=== PATIENT | female | born 1995 | race Caucasian/White ===

== ENCOUNTER 2023-01-10 23:15 | Inpatient (IN) | payer OTHER ==
[~2023-01-10] VITALS: Ht 154.9 cm; Wt 77.2 kg
[2023-01-10 23:31] VITALS: BP 156/101
[2023-01-10] MEDS ORDERED: PRENTAB9 PO (23:31)
[2023-01-10] MEDS ORDERED: HOME MED LIST COMPLETE! XX SCH (23:35)
[2023-01-10 23:50] VITALS: BP 158/90
[2023-01-10] MEDS ORDERED: LACTATED RINGER'S 1000 ML IV STA (23:58)
[2023-01-11] VITALS (47 sets, daily range): BP systolic 104–176; BP diastolic 55–98; O2SAT 98
[2023-01-11] MEDS ORDERED: CARBOPROST TROMETHAMINE 250 MCG/ML AMP IM PRN
[2023-01-11] MEDS ORDERED: OXYTOCIN INJ 10UNITS/ML 1ML VIAL IV PRN
[2023-01-11] MEDS ORDERED: TRANEXAMIC ACID INJection 1,000 MG in NS 100 ML IV PRN ×2
[2023-01-11] MEDS ORDERED: LIDOCAINE 1% MDV 20ML VIAL INFIL PRN
[2023-01-11] MEDS ORDERED: OXYTOCIN DRIP 30 UNITS in IV 1 EA IV PRN ×6
[2023-01-11] MEDS ORDERED: OXYTOCIN INJ 10UNITS/ML 1ML VIAL IM PRN
[2023-01-11] MEDS ORDERED: METHYLERGONOVINE MALEATE 0.2MG/ML 1ML VIAL IM PRN
[2023-01-11] MEDS ORDERED: PENICILLIN G POTASSIUM 5 MU IV 5 MU in D5W MINI-BAG PLUS 100 ML IV STA (00:06)
[2023-01-11 00:54] LABS: URIC ACID 5.8 MG/DL (3.1-7.8)
[2023-01-11 00:55] LABS: HEMOGLOBIN 11.5 g/dl (12.0-15.5); MEAN CORPUSCULAR HEMOGLOBIN 28.6 pg (27.0-33.0); MEAN CORPUSCULAR HGB CONC 33.8 g/dl (32.0-36.5); MEAN CORPUSCULAR VOLUME 84.6 fl (80.0-96.0); PLATELET COUNT, AUTOMATED 212 10^3/uL (150-450); RED BLOOD COUNT 4.02 10^6/uL (4.00-5.40); WHITE BLOOD COUNT 10.1 10^3/uL (4.0-10.0)
[2023-01-11 00:56] LABS: LDH LACTATE DEHYDROGENASE 205 U/L (120-246)
[2023-01-11 00:57] LABS: ALT/SGPT 11 U/L (7.0-40); AST/SGOT 23 U/L (<34); BILIRUBIN,TOTAL 0.3 MG/DL (0.3-1.2); CREATININE FOR GFR 0.49 MG/DL (0.55-1.30); GLOMERULAR FILTRATION RATE > 60.0 (>60)
[2023-01-11 01:09] LABS: TOTAL PROTEIN,RANDOM URINE 18.6 MG/DL (0.0-14.0)
[2023-01-11 01:14] LABS: CREATININE,RANDOM URINE 31.2 MG/DL
[2023-01-11] MEDS ORDERED: NALBUPHINE HCL 1MG/0.1ML (100MG/10ML) MDV IV PRN (04:05)
[2023-01-11] MEDS: LR 1,000 ML IV SCH ×3 (04:29→13:20)
[2023-01-11] MEDS ORDERED: EPIDURAL/PCA KEYS XX PRN (06:55)
[2023-01-11] MEDS ORDERED: NALOXONE INJ 0.4MG/1ML VIAL IV PRN (06:55)
[2023-01-11] MEDS ORDERED: ONDANSETRON 4MG 2ML VIAL IV PRN (06:55)
[2023-01-11] MEDS ORDERED: ePHEDrine SULFATE 25 MG/5 ML(5MG/ML) SYRINGE IVP PRN (06:55)
[2023-01-11] MEDS ORDERED: diphenhydrAMINE 50MG/ML VIAL IV PRN (06:55)
[2023-01-11] MEDS ORDERED: LR 500 ML IV PRN (06:55)
[2023-01-11] MEDS ORDERED: FENTANYL 2MCG/ML ROPIVACAINE 0.2% IN 0.9% NACL 100ML IVBAG As Ordered ONE (06:59)
[2023-01-11] MEDS: FENTANYL/ROPIVACAINE/NACL BAG 100 ML EPIDURAL SCH ×2 (07:15→17:17)
[2023-01-11] MEDS ORDERED: LIDOCAINE 2% 100MG/5ML SDV (FOR ANES.) As Ordered ONE (07:46)
[2023-01-11] MEDS: PEN G POT 3,000,000 UNIT/50 ML 3,000,000 UNIT in IV 1 EA IV SCH ×3 (08:35→16:30)
[2023-01-11] MEDS ORDERED: PROPRANOLOL INJ 1MG/ML 1ML VIAL IV STA ×2 (09:58→14:36)
[2023-01-11] MEDS ORDERED: CALCIUM CARBONATE 500 MG CHEW U/D PO ONE (10:00)
[2023-01-11] MEDS ORDERED: diphenhydrAMINE 50MG/ML VIAL IV ONE (18:05)
[2023-01-11 19:53] LABS: CORD GAS ABE V -3.6; CORD GAS O2 SAT V 70.5 %; CORD GAS PCO2 V 37.4 mmHg; CORD GAS PH V 7.368 UNITS; CORD GAS PO2 V 28.9 mmHg; CORD GAS SBC V 20.8 MMOL/L; CORD GAS TCO2 V 22.2 MMOL/L
[2023-01-11] MEDS ORDERED: METOCLOPRAMIDE INJ 10MG/2ML VIAL IV PRN (20:20)
[2023-01-11] MEDS ORDERED: ACETAMINOPHEN 500 MG TAB PO PRN (20:20)
[2023-01-11] MEDS ORDERED: DIBUCAINE 1% OINTMENT 30GM TOP PRN (20:20)
[2023-01-11] MEDS ORDERED: ANUSOL HC CREAM 30GM TOP PRN (20:20)
[2023-01-11] MEDS ORDERED: MOM 30ML SUSPENSION UDC PO PRN (20:20)
[2023-01-11] MEDS ORDERED: OXYTOCIN DRIP 30 UNITS in IV 1 EA IV SCH ×8 (20:20)
[2023-01-11] MEDS ORDERED: DOCUSATE SODIUM 100MG CAPSULE PO PRN (20:20)
[2023-01-11] MEDS ORDERED: LR 1,000 ML IV SCH ×2 (20:20)
[2023-01-11] MEDS ORDERED: IBUPROFEN 800 MG TAB PO PRN (20:20)
[2023-01-11] MEDS ORDERED: METHYLERGONOVINE MALEATE 0.2 MG TAB PO PRN (20:20)
[2023-01-11] MEDS ORDERED: RHOGAM 300MCG (1500IU) INJ IM SCH (20:20)
[2023-01-11] MEDS ORDERED: IBUPROFEN 600MG TAB PO PRN (20:20)
[2023-01-11] MEDS ORDERED: ACETAMINOPHEN TAB 650MG DOSE (2X325MG) PO PRN (20:20)
[2023-01-12 06:00] VITALS: BP 112/59; O2SAT 97
[2023-01-12] MEDS: PRENATAL VITAMINS CHEWABLE TABLET PO SCH (08:03)
[2023-01-12] MEDS ORDERED: PRENATAL VITAMINS CHEWABLE TABLET PO SCH (09:00)
[2023-01-12 18:00] VITALS: BP 119/63; O2SAT 98
[2023-01-13] MEDS: PRENATAL VITAMINS CHEWABLE TABLET PO SCH (08:07)
[2023-01-13] MEDS ORDERED: MEASLES,MUMPS,RUBELLA VACCINE INJ (MMR-II) SC.IMMUN ONE (09:00)
== END 2023-01-13 18:05 | disposition home or self-care (01) | DRG 807 ==
LOC: M LDO 23:15 → M LDI 23:55 → M OBS 01-11 23:45
PROVIDERS: ADMIT Obstetrics & Gynecology; ATTEND Obstetrics & Gynecology
PROC: 10E0XZZ Delivery of Products of Conception, External Approach (ICD-10-PCS; principal; 2023-01-11)
PROC: 0HQ9XZZ Repair Perineum Skin, External Approach (ICD-10-PCS; 2023-01-11)
DX: O14.04 Mild to moderate pre-eclampsia, complicating childbirth (principal); Z37.0 Single live birth; O77.0 Labor and delivery complicated by meconium in amniotic fluid; O99.824 Streptococcus B carrier state complicating childbirth; O70.0 First degree perineal laceration during delivery; Z3A.40 40 weeks gestation of pregnancy

== ENCOUNTER 2023-07-27 17:48 | Emergency (ER) | payer OTHER ==
[~2023-07-27] VITALS: Ht 154.9 cm; Wt 65.6 kg
[2023-07-27 17:48] VITALS: BP 133/87; TEMP 97.7; O2SAT 99
[~2023-07-27 17:48] MED LIST: PRENTAB9 PO
[2023-07-27] MEDS ORDERED: CEPH500C PO (23:03)
[2023-07-27] MEDS: CEPHALEXIN 500 MG CAP PO ONE (23:17)
== END 2023-07-27 23:26 | disposition home or self-care (01) ==
LOC: M ED 17:48
DX: O23.41 Unspecified infection of urinary tract in pregnancy, first trimester (principal); Z3A.12 12 weeks gestation of pregnancy; Z79.2 Long term (current) use of antibiotics; Z79.899 Other long term (current) drug therapy

== ENCOUNTER → 2024-01-17 | Outpatient (REF) | payer OTHER ==
[~2024-01-17] MED LIST changes: +CEPH500C PO
== END ==
LOC: M SFHCWAGY 16:59
PROVIDERS: ATTEND Specialist
DX: Z34.93 Encounter for supervision of normal pregnancy, unspecified, third trimester (principal); Z3A.36 36 weeks gestation of pregnancy

== ENCOUNTER 2024-02-06 06:17 | Inpatient (IN) | payer OTHER ==
[~2024-02-06] VITALS: Ht 154.9 cm; Wt 79.7 kg
[2024-02-06] VITALS (34 sets, daily range): BP systolic 95–144; BP diastolic 51–95; O2SAT 98
[2024-02-06] MEDS ORDERED: ACET-907 PO (06:25)
[2024-02-06] MEDS ORDERED: HOME MED LIST COMPLETE! XX SCH (06:30)
[2024-02-06 07:15] LABS: HEMATOCRIT 31.9 % (36.0-47.0); HEMOGLOBIN 9.7 g/dl (12.0-15.5); MEAN CORPUSCULAR HGB CONC 30.4 g/dl (32.0-36.5); MEAN CORPUSCULAR VOLUME 75.6 fl (80.0-96.0); PLATELET COUNT, AUTOMATED 276 10^3/uL (150-450); RED BLOOD COUNT 4.22 10^6/uL (4.00-5.40); WHITE BLOOD COUNT 13.6 10^3/uL (4.0-10.0)
[2024-02-06] MEDS ORDERED: TRANEXAMIC ACID INJection 1,000 MG in NS 100 ML IV PRN (07:30)
[2024-02-06] MEDS ORDERED: METHYLERGONOVINE MALEATE 0.2MG/ML 1ML VIAL IM PRN (07:30)
[2024-02-06] MEDS ORDERED: CARBOPROST TROMETHAMINE 250 MCG/ML AMP IM PRN (07:30)
[2024-02-06] MEDS ORDERED: LIDOCAINE 1% MDV 20ML VIAL INFIL PRN (07:30)
[2024-02-06] MEDS: LACTATED RINGER'S 1000 ML IV STA (07:42)
[2024-02-06] MEDS: PENICILLIN G POTASSIUM 5 MU IV 5 MU in DEXTROSE 5% (D5W) MINI-BAG PLU 100 ML IV STA (07:42)
[2024-02-06 08:48] LABS: HEPATITIS C VIRUS ABY INDEX < 0.02 INDEX (<0.8)
[2024-02-06] MEDS ORDERED: ONDANSETRON 4MG 2ML VIAL IV PRN (09:25)
[2024-02-06] MEDS ORDERED: ePHEDrine SULFATE 25 MG/5 ML(5MG/ML) SYRINGE IVP PRN (09:25)
[2024-02-06] MEDS ORDERED: EPIDURAL/PCA KEYS XX PRN (09:25)
[2024-02-06] MEDS ORDERED: NALOXONE INJ 0.4MG/1ML VIAL IV PRN (09:25)
[2024-02-06] MEDS ORDERED: diphenhydrAMINE 50MG/ML VIAL IV PRN (09:25)
[2024-02-06] MEDS ORDERED: LR 500 ML IV PRN (09:25)
[2024-02-06] MEDS ORDERED: FENTANYL 2MCG/ML ROPIVACAINE 0.2% IN 0.9% NACL 100ML IVBAG As Ordered ONE (09:26)
[2024-02-06] MEDS: LR 1,000 ML IV SCH (09:33)
[2024-02-06] MEDS: FENTANYL/ROPIVACAINE/NACL BAG 100 ML EPIDURAL SCH (09:54)
[2024-02-06] MEDS: OXYTOCIN DRIP 30 UNITS in IV 1 EA IV SCH (11:47)
[2024-02-06] MEDS: PEN G POT 3,000,000 UNIT/50 ML 3,000,000 UNIT in IV 1 EA IV SCH (11:48)
[2024-02-06] MEDS: OXYTOCIN DRIP 30 UNITS in IV 1 EA IV PRN (16:00)
[2024-02-06] MEDS ORDERED: IBUPROFEN 600MG TAB PO PRN (16:25)
[2024-02-06] MEDS ORDERED: ACETAMINOPHEN 325 MG TAB PO PRN (16:25)
[2024-02-06] MEDS ORDERED: ANUSOL HC CREAM 30GM TOP PRN (16:25)
[2024-02-06] MEDS ORDERED: MOM 30ML SUSPENSION UDC PO PRN (16:25)
[2024-02-06] MEDS ORDERED: IBUPROFEN 800 MG TAB PO PRN (16:25)
[2024-02-06] MEDS ORDERED: DIBUCAINE 1% OINTMENT 30GM TOP PRN (16:25)
[2024-02-06] MEDS ORDERED: DOCUSATE SODIUM 100MG CAPSULE PO PRN (16:25)
[2024-02-06] MEDS ORDERED: RHOGAM 300MCG (1500IU) INJ IM SCH (16:25)
[2024-02-06] MEDS: ACETAMINOPHEN 500 MG TAB PO PRN (22:02)
[2024-02-07 06:00] VITALS: BP 135/67; O2SAT 99
[2024-02-07] MEDS: PRENATAL VITAMINS CHEWABLE TABLET PO SCH (10:06)
[2024-02-07 18:00] VITALS: BP 135/75; O2SAT 100
[2024-02-08 06:02] VITALS: BP 119/63; O2SAT 97
[2024-02-08] MEDS: MEASLES,MUMPS,RUBELLA VACCINE INJ (MMR-II) SC.IMMUN ONE (08:51)
[2024-02-08] MEDS ORDERED: IBUP-1022 PO (10:24)
== END 2024-02-08 13:00 | disposition home or self-care (01) | DRG 807 ==
LOC: M LDO 06:17 → M LDI 06:49 → M OBS 18:06
PROVIDERS: ADMIT Obstetrics & Gynecology; ATTEND Advanced Practice Midwife
PROC: 10E0XZZ Delivery of Products of Conception, External Approach (ICD-10-PCS; principal; 2024-02-06)
PROC: 0HQ9XZZ Repair Perineum Skin, External Approach (ICD-10-PCS; 2024-02-06)
DX: O70.0 First degree perineal laceration during delivery (principal); Z37.0 Single live birth; Z3A.39 39 weeks gestation of pregnancy; O99.824 Streptococcus B carrier state complicating childbirth; O69.81X0 Labor and delivery complicated by cord around neck, without compression, not applicable or unspecified